=== PATIENT | male | born 1955 | race Caucasian/White ===

== ENCOUNTER → 2017-08-23 10:29 | Outpatient (CLI) | payer BC, SELFPAY ==
--- NOTE | 2017-08-23 10:34 | US_ITS ---
US abdomen limited HISTORY: ITS.REASON: ELEVATED LIVER ENZYMES ORDERING PHYSICIAN: Aleksandr Dailey MD PATIENT AGE: 61 years COMPARISON: None FINDINGS: PANCREAS: Unremarkable. No obvious mass or abnormal fluid collection. No ductal dilatation LIVER: Fatty liver RIGHT KIDNEY: Unremarkable. Normal size and echogenicity. No hydronephrosis GALLBLADDER: There are multiple gallstones present. No gallbladder wall thickening, pericholecystic fluid, or biliary dilatation. IMPRESSION: Cholelithiasis. Fatty liver
--- NOTE | 2017-08-23 11:23 | XR_ITS ---
XR chest 2V HISTORY: Cough and wheezing ITS.REASON: WHEEZING ORDERING PHYSICIAN: Aleksandr Dailey MD PATIENT AGE: 61 years COMPARISON: 10/09/2016 FINDINGS: The cardiomediastinal silhouette and pulmonary vascularity are within normal limits. The lungs are clear without infiltrates, suspicious nodules, or pleural effusions. No acute bony abnormalities. IMPRESSION: Negative chest, no acute finding
--- NOTE | 2017-08-23 11:28 | XR_ITS ---
XR wrist LT min 3V HISTORY: ITS.REASON: LEFT WRIST PAIN ORDERING PHYSICIAN: Aleksandr Dailey MD PATIENT AGE: 61 years COMPARISON: None FINDINGS: No fracture or dislocation. No lytic or blastic change. There is normal mineralization.. The joint spaces are well-preserved. No significant degenerative/arthritic changes. No erosive changes evident.. IMPRESSION: Negative left wrist
== END ==
PROVIDERS: PCP Family Medicine; Visit Provider Family Medicine
DX: R74.8 Abnormal levels of other serum enzymes (principal); R06.2 Wheezing; M25.532 Pain in left wrist
CPT/HCPCS: 71046; 73110; 76705

== ENCOUNTER → 2017-10-10 09:47 | Outpatient (CLI) | payer BC, SELFPAY ==
[2017-10-10 14:55] VITALS: PULSE 71; PULSE 72
== END ==
PROVIDERS: PCP Family Medicine; Visit Provider Internal Medicine
DX: Z01.810 Encounter for preprocedural cardiovascular examination (principal); I25.10 Atherosclerotic heart disease of native coronary artery without angina pectoris
CPT/HCPCS: 94060; 94640; 94726; 94729

== ENCOUNTER → 2017-11-13 12:27 | Outpatient (CLI) | payer BC, SELFPAY ==
[2017-11-14 15:58] LABS: H. pylori Breath Test Negative (Negative)
== END ==
PROVIDERS: Visit Provider Physician Assistant
DX: Z86.19 Personal history of other infectious and parasitic diseases (principal)
CPT/HCPCS: 83013

== ENCOUNTER → 2018-04-01 10:07 | Outpatient (POV) | payer BC, SELFPAY | PROVIDERS: PCP Family Medicine; Visit Provider Internal Medicine | DX: Z00.00 Encounter for general adult medical examination without abnormal findings (principal) ==

== ENCOUNTER → 2018-09-22 10:15 | Outpatient (CLI) | payer BC, SELFPAY ==
--- NOTE | 2018-09-22 10:24 | XR_ITS ---
XR chest 2V, XR ribs RT 2V HISTORY: Chest pain/discomfort after lifting injury ITS.REASON: CHEST DISCOMFORT ORDERING PHYSICIAN: Meg Morrow PATIENT AGE: 62 years Technique: 1. CXR 2 view: PA and lateral chest 2. RIGHT RIBS both oblique views along with frontal view chest below diaphragm COMPARISON: PA and lateral chest 08/23/2017 & 10/09/2016 FINDINGS: ======= CXR The lungs are well expanded and clear with nothing definitely acute. No pneumothorax. No pleural effusion. Heart lexa and mediastinal structures satisfactory. Stable small less than 5 mm partially calcified granuloma right apex unchanged 2016. The slight coarsening markings right infrahilar region towards right lower lobe are similar to previous studies and reflect some minor chronic changes. Nothing definitely acute ======== RIGHT RIBS Right ribs appear intact with no fracture nor lesion evident. Bones well mineralized. Slight undulation at the anterior 10th rib I believe is normal and most compatible with the costochondral junction variations. I doubt fracture. IMPRESSION Right ribs intact. No fracture nor lesion. Lungs clear no active disease. A stable chest
== END ==
PROVIDERS: PCP Family Medicine; Visit Provider Nurse Practitioner Family
DX: R07.89 Other chest pain (principal)
CPT/HCPCS: 71046; 71100

== ENCOUNTER → 2019-01-27 11:10 | Outpatient (CLI) | payer BC, SELFPAY ==
--- NOTE | 2019-01-27 11:10 | NM_ITS ---
CARDIOLITE SPECT MYOCARDIAL PERFUSION LEXISCAN, REST AND STRESS: History: Coronary artery disease, hypertension, hyperlipidemia, family history. Procedure: Patient exercised on Aguilar protocol 10 minutes and 30 seconds, resting heart rate was 54 bpm resting blood pressure 152/81, with exercise maximum heart rate achieved was 1 43 bpm which is greater than 85% of the maximum predicted heart rate and a blood pressure was 190/84. Test was started due to shortness of breath and fatigue patient denied any complained of chest pain. Patient has good exercise capacity achieved 12.3mets of workload on treadmill, the blood pressure response to exercise was adequate. Electrocardiogram: Resting electrocardiogram showed sinus rhythm right bundle branch block, with exercise there is less than 1.[address] segment depression noted from the baseline EKG. The EKG portion of the exercise Myoview is negative for ischemia. Cardiac stress and resting SPECT images: Cardiac stress and resting SPECT images were obtained using technetium 99 Myoview 29.8 mCi stress and 10.1 mCi at rest. Gated SPECT further analysis of segmental wall motion and calculation of the ejection fraction also done. Cardiac stress and resting SPECT images show uniform myocardial activity without segmental perfusion abnormality, computer derived ejection fraction is 50% with no regional wall motion abnormality, right ventricle is normal size and contractility. Conclusion: 1. The EKG portion of the exercise Myoview is negative for ischemia, patient has good exercise capacity achieved 12.3mets of workload on treadmill, the blood pressure response to exercise was adequate, there was no exercise-induced chest discomfort. 2. No scintigraphic evidence of reversible ischemia seen, either derived ejection fraction is 50% with no regional wall motion abnormality, right ventricle is normal size and contractility. 3. Normal exercise Myoview study.
--- NOTE | 2019-01-27 13:09 | HMH.ITSHM ---
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 []SIMVASTATIN REQUIP ACID REFLUX MED ASA HCTZ
== END ==
PROVIDERS: PCP Family Medicine; Visit Provider Physician Assistant
DX: I11.9 Hypertensive heart disease without heart failure (principal); I25.10 Atherosclerotic heart disease of native coronary artery without angina pectoris; I45.10 Unspecified right bundle-branch block; Z95.5 Presence of coronary angioplasty implant and graft
CPT/HCPCS: 78452; 93017; A9502

== ENCOUNTER → 2020-05-13 11:00 | Outpatient (CLI) | payer BC, SELFPAY ==
--- NOTE | 2020-05-13 | CA_ITS ---
APPROVED REPORT Exam: Pharmacologic Technologist: Jenny Inman, Ht: 5 ft 11 in Wt: 210 lbs BSA: 2.15 m2 HR: 64 bpm BP: 124/78 mmHg Rhythm: SINUS RHYTHM WITH RBBB Medical History Medical History: HTN Medications: Omeprazole,,,,, Asa,,,,, HCTZ,,,,, ReQUIP,,,,, Allergies: CODEINE Cardiac Risk Factors: HTN, FHX of CAD Stress Test Details Test: LEXISCAN HR Resting HR: 58 bpm Max Heart Rate (APMHR): 158 bpm Max HR Achieved: 93 bpm Target HR (85% APMHR): 134 bpm % of APMHR: 58 Recovery HR: 76 bpm BP Resting BP: 124.0/78.0 mmHg Max BP: 136.0/79.0 mmHg Recovery BP: 117.0/71.0 mmHg BP response to stress: Normal blood pressure response to stress. ECG Resting ECG: SINUS RHYTHM WITH RBBB Clinical Exercise duration: 04:00 min Highest Stage Achieved: Stress ECG Conclusion LEXISCAN PORTION COMPLETED. PATIENT COMPLAINT OF SOA DURING PEAK INFUSION. NO CHEST PAIN. SOA AT PEAK INFUSION. RESOLVED IN RECOVERY. NO ECTOPY. LESS THAN 1.5MM ST DEPRESSION. IMAGES TO FOLLOW Test Summary REST . . . . . . . Sitting REST 00:37 . . 58 . . . . Stage 1 . . . . . . . Myoview Injected Stage 1 01:00 . . 75 . . . . Stage 2 01:00 . . 91 . 112/ 68 . . Stage 3 01:00 . . 87 . 124/ 71 . . Stage 4 01:00 . . 78 . 132/ 71 . Stop exercise at 04:00 RECOVERY 01:00 . . 79 . 117/ 71 . . RECOVERY 02:00 . . 70 . 119/ 82 . . RECOVERY 03:00 . . 73 . 118/ 82 . . RECOVERY 04:00 . . 69 . 136/ 79 . . RECOVERY 04:03 . . 70 . 136/ 79 . . Electronically signed by : Mark Martin, 05/16/2020 17:56:01
--- NOTE | 2020-05-13 11:00 | NM_ITS ---
APPROVED REPORT Exam: Nuclear Stress Test Indication: CAD, 7 STENTS, HTN, HYPERLIPIDEMIA, FM HX, SOB Patient Location: Outpatient Stress Tech: Linda Henny [place] Tech:Malathi Don JOSE ARMANDO RT (R)(N)(M) Ht: 5 ft 11 in Wt: 205 lbs HR: 64 bpm BP: 124/78 mmHg BSA: 2.13 m2 BMI: 28.5 History: CAD, 7 STENTS, HTN, HYPERLIPIDEMIA, FM HX, SOB Procedure: Patient received a 0.4 mg of intravenous Lexiscan, resting heart rate 64 bpm, resting blood pressure 124/78 mmHg, with Lexiscan maximum heart rate achived was 76 bpm which is Less than 85 % of the maximum predicted heart rate and blood pressure was 117/71 mmHg. With Lexiscan, patient denied any complaint of chest pain. Electrocardiogram Resting electrocardiogram showed sinus rhythm, with Lexiscan there is less than 1.[address] segment depression noted from the baseline EKG. The EKG portion of the Lexiscan is nondiagnostic. Cardiac Stress and Resting SPECT Images: Cardiac Stress and Resting SPECT images were obtained using technetium 99m Myoview 32.3 mCi stress and 10.67 mCi at rest. Gated SPECT for the analysis of segmental wall motion and calculation of the ejection fraction also done. Cardiac stress and resting SPECT images show a mild fixed defect in the inferior wall with normal contractility on gated SPECT is likely secondary to soft tissue attenuation, no reversible ischemia seen. Computer derived ejection fraction is 39% however visually estimated ejection fraction is 55% with no regional wall motion abnormality. Right ventricle is mildly enlarged with normal contractility. Conclusion: 1. The EKG portion of the Lexiscan Myoview is nondiagnostic. 2. No scintigraphic evidence of reversible ischemia, a fixed defect in the inferior wall is likely secondary to soft tissue attenuation, visually estimated ejection fraction 50% with no regional wall motion abnormality, right ventricle is mildly enlarged with normal contractility 3. Likely normal Lexiscan Myoview study. Electronically signed by : Mark Martin, 05/20/2020 13:39:14
--- NOTE | 2020-05-13 13:36 | HMH.ITSHM ---
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 [] ropinirole omeprazole hctz asa
== END ==
PROVIDERS: PCP Family Medicine; Visit Provider Physician Assistant
DX: R07.9 Chest pain, unspecified (principal); I25.10 Atherosclerotic heart disease of native coronary artery without angina pectoris; I11.9 Hypertensive heart disease without heart failure; E78.5 Hyperlipidemia, unspecified; Z95.5 Presence of coronary angioplasty implant and graft
CPT/HCPCS: 78452; 93017; A9502; J2785

== ENCOUNTER → 2020-08-23 09:25 | Outpatient (CLI) | payer BC, SELFPAY ==
[2020-08-23 10:56] LABS: Alanine Aminotransferase 16 U/L (12-78); Aspartate Amino Transferase 30 U/L (17-59); Bilirubin,Unconjugated 1.6 mg/dL (0.0-1.1)
[2020-08-23 10:57] LABS: Albumin Level 4.5 g/dl (3.5-5.0); Alkaline Phosphatase 69 U/L (38-126); Bilirubin,Direct 0.1 mg/dl (0.0-0.4); Bilirubin,Indirect 1.6 mg/dL (0.0-0.9); Bilirubin,Total 1.7 mg/dl (0.2-1.3); Chol/HDL Ratio 2.4 (1-3.5); Cholesterol 160 mg/dl (140-200); HDL Cholesterol 66 mg/dl (40-60); Total Protein,Serum 7.7 g/dl (6.3-8.2); Triglycerides 109 mg/dl (30-150); VLDL Cholesterol 22 mg/dL (0-40)
[2020-08-23 11:20] LABS: Direct LDL Cholesterol 68.47 mg/dL (100-129)
== END ==
PROVIDERS: Visit Provider Urology
DX: E78.5 Hyperlipidemia, unspecified (principal); I25.10 Atherosclerotic heart disease of native coronary artery without angina pectoris; I11.9 Hypertensive heart disease without heart failure; I45.10 Unspecified right bundle-branch block
CPT/HCPCS: 36415; 80061; 80076

== ENCOUNTER → 2020-08-30 11:13 | Outpatient (CLI) | payer BC, SELFPAY ==
--- NOTE | 2020-08-30 11:21 | XR_ITS ---
PROCEDURE: XR CERVICAL SPINE 5V CLINICAL INDICATION: Radiculopathy, cervical COMPARISON: No exams were available for comparison FINDINGS: No fracture or dislocation. No lytic or blastic change. There is normal mineralization. There is degenerative disc disease at C5-C6 and C6-C7 with anterior osteophytes at these levels. Facet arthritic and hypertrophic changes are present at C3, C4, C5, and C6. Uncovertebral hypertrophy and facet hypertrophy results in mild foraminal narrowing at C5-C6 and C6-C7 on the right and C6-C7 on the left. Other findings:Postsurgical changes are present at the mandible with a bone plate as well as the maxilla on both sides with dental implants also noted. No cervical rib. IMPRESSION: Multilevel cervical spondylosis as described above Dictated by: Philip Ruggiero MD 08/30/2020 15:26 Philip Ruggiero MD in [place] 08/30/2020 15:26
== END ==
PROVIDERS: PCP Family Medicine; Visit Provider Family Medicine
DX: M54.12 Radiculopathy, cervical region (principal)
CPT/HCPCS: 72050

== ENCOUNTER → 2020-12-21 09:46 | Outpatient (CLI) | payer BC, SELFPAY ==
--- NOTE | 2020-12-21 09:47 | CA_ITS ---
APPROVED REPORT EXAM: Comprehensive 2D, Doppler, and color-flow Echocardiogram Materials Technician: GLENDA Matthews, RVS Ht: 5 ft 11 in Wt: 224lbs BSA: 2.21 HR: 69 bpm BP: 147/73 mmHg Rhythm: PVC's Indications: CAD-stent, Pre-op clearance for knee replacement,HTN, HLD Echo Enhancing Agent Comments: Frequent ectopic beats. 2D Dimensions IVSd 0.96 cm LVEF (Visual) 57.00 % PWd 0.91 cm LA Volume 77.90 mL LVDd 5.37 cm LA Volume Index 35.20 mL/m2 (M/F) 16-34 LVDs 3.75 cm Aortic Root 3.64 cm Left Atrium 3.70 cm LVOT 1.92 cm (M/F) 1.5-2.5 M-Mode Dimensions LA Diam 4.05 cm (1.9-4.0) Ao Diam 3.61 cm (2.0-3.7) EPSs 0.69 cm TAPSE 3.05 (<1.7) LV Diastology E Decel Time 247.00 (160-240 msec) E/A Ratio 1.36 MED E' 8.10 (< 7 cm/sec) MED A' 10.00 cm/s E'/MED E' Ratio 10.02 (>14) LAT E' 6.30 (<10 cm/sec) LAT A' 11.80 cm/s E/LAT E' Ratio 12.89 (>14) Aortic Valve LVOT Max 75.00 (70-110 cm/s) LVOT VTI 15.40 cm AoV Peak Alberto. 131.00 (50-130 cm/s) AO Peak GR. 6.80 mmHg AO Mean GR. 3.90 (<5 mmHg) AO VTI 30.78 (18-25 cm) NEHA (VTI) 1.45 (2.5-4.5 cm2) Mitral Valve MV A Velocity 60.00 (40-130 cm/s) E/A Ratio 1.36 MV Decel. Time 247.00 (160-240 ms) Pulmonary Valve PV Peak Velocity 73.00 (50-150 cm/s) Tricuspid Valve TR P. Velocity 161.00 cm/s RAP Estimate 10.00 mmHg RVSP 20.40 mmHg Left Ventricle Left atrium is normal size, left ventricle is normal size, there is no concentric left ventricular hypertrophy, visually estimated ejection fraction 55% with no regional wall motion abnormality, diastolic parameters are inconclusive. Right Ventricle Right atrium and right ventricle are normal size and contractility. Aortic Valve Aortic valve is minimally thickened and fibrosed, there is no aortic stenosis or aortic insufficiency. Mitral Valve Mitral valve is grossly normal, there is trace mitral regurgitation. Tricuspid Valve Tricuspid valve grossly normal, there is trace tricuspid regurgitation, tricuspid regurgitation jet velocity is inadequate for calculation of the right ventricular systolic pressure. Pulmonic Valve Pulmonic valve is poorly visualized. Great Vessels Aortic root is normal size. Pericardium No significant pericardial effusion noted. Conclusion 1. Normal left ventricular size, preserved left ventricular systolic function, visually estimated ejection fraction 55% with no regional wall motion abnormality, diastolic parameters are inconclusive. 2. Trace mitral and tricuspid regurgitation. 3. No significant pericardial effusion noted. Electronically signed by : Mark Martin, 12/22/2020 11:21:19
== END ==
PROVIDERS: PCP Family Medicine; Visit Provider Physician Assistant
DX: I25.10 Atherosclerotic heart disease of native coronary artery without angina pectoris (principal); R94.31 Abnormal electrocardiogram [ECG] [EKG]; I11.9 Hypertensive heart disease without heart failure; E78.5 Hyperlipidemia, unspecified; Z95.5 Presence of coronary angioplasty implant and graft
CPT/HCPCS: 93306

== ENCOUNTER → 2021-04-13 16:21 | Outpatient (CLI) | payer BC, SELFPAY ==
[2021-04-13 17:08] LABS: Basophils # 0.1 K/mm3 (0-0.2); Basophils % 0.8 % (0.1-2.0); Eosinophils # 0.2 K/mm3 (0.0-0.4); Eosinophils % 1.7 % (0.1-12.0); Hematocrit 46.8 % (42.0-52.0); Hemoglobin 15.5 g/dL (14.1-18.0); Lymphocytes # 3.2 K/mm3 (0.7-4.5); Lymphocytes % 34.5 % (10-50); Mean Corpuscular HGB Conc 33.1 g/dL (31.8-35.4); Mean Corpuscular Hemoglobin 31.5 pg (27.0-31.2); Mean Platelet Volume 8.6 fl (7.4-10.4); Monocytes # 0.5 K/mm3 (0.1-1.0); Monocytes % 5.8 % (1.7-9.3); Neutrophils # 5.3 K/mm3 (1.8-7.8); Neutrophils % 57.1 % (37.0-80.0); Platelet Count 303 K/mm3 (142-424); Red Blood Count 4.93 M/mm3 (4.60-6.20); Red Cell Distribution Width 13.5 % (11.5-17.5); White Blood Count 9.2 K/mm3 (4.8-10.8)
[2021-04-13 17:31] LABS: Hemoglobin A1C 5.7 % (4.0-6.0)
[2021-04-13 18:37] LABS: Activated Partial Thrombo Time 30.2 seconds (22.8-30.6)
[2021-04-13 18:42] LABS: Chloride 105 mmol/L (98-107); Potassium 3.9 mmoL/L (3.5-5.1); Sodium 140 mmol/L (136-145)
[2021-04-13 18:45] LABS: Alanine Aminotransferase 17 U/L (12-78); Albumin/Globulin Ratio 1.4 (1.1-1.8); Alkaline Phosphatase 80 U/L (38-126); Anion Gap 12.9 mEq/L (5-15); Aspartate Amino Transferase 31 U/L (17-59); Bilirubin,Total 0.6 mg/dl (0.2-1.3); Blood Urea Nitrogen 14 mg/dl (9-20); Calcium 8.9 mg/dl (8.4-10.2); Carbon Dioxide 26 mmol/L (22.0-30.0); Estimated Glomerular Filt Rate 98 ml/min (>60); GFR (African American) 118 ML/MIN (>60); Globulin 2.9 g/dL (1.3-3.2); Glucose 100 mg/dl (74-100); Total Protein,Serum 6.9 g/dl (6.3-8.2)
[2021-04-13 19:04] LABS: 25-OH Vitamin D, Total 33.2 ng/mL (30-100)
[2021-04-13 19:46] LABS: INR 0.93 (0.9-1.1)
[2021-04-29 16:22] LABS: Miscellaneous Test 225
[2021-04-29 16:53] LABS: Cotinine <1.0; Nicotine <1.0
== END ==
PROVIDERS: Visit Provider Family Medicine
DX: Z01.818 Encounter for other preprocedural examination (principal)
CPT/HCPCS: 36415; 80053; 80323; 82306; 83036; 85025; 85610; 85730; 87081

== ENCOUNTER → 2021-09-11 13:22 | Outpatient (CLI) | payer BC, SELFPAY ==
--- NOTE | 2021-09-11 13:30 | XR_ITS ---
FINAL REPORT CLINICAL HISTORY: RT ARM PAIN/ patient fell right sided pain whole right arm FINDINGS: RIGHT SCAPULA Two views demonstrate no acute fracture or dislocation. There are mild degenerative changes of the acromioclavicular joint. Visualized joint spaces are normally aligned. The soft tissues are unremarkable. IMPRESSION: No acute bony abnormality. Reviewed, Interpreted and Dictated by Robbie Vivar III, MD Transcribed by Savanah Mendez Authenticated by Robbie Vivar III, MD on 09/11/2021 03:17:04 PM [facility][1]
--- NOTE | 2021-09-11 13:30 | XR_ITS ---
FINAL REPORT CLINICAL HISTORY: RT ARM PAIN/ patient fell today and has whole right arm pain FINDINGS: RIGHT CLAVICLE Two views demonstrate no acute fracture or dislocation. There are mild degenerative changes of the acromioclavicular joint. Visualized joint spaces are normally aligned. The soft tissues are unremarkable. IMPRESSION: No acute bony abnormality. Reviewed, Interpreted and Dictated by Robbie Vivar III, MD Transcribed by Savanah Mendez Authenticated by Robbie Vivar III, MD on 09/11/2021 03:17:02 PM [facility]
--- NOTE | 2021-09-11 13:30 | XR_ITS ---
FINAL REPORT CLINICAL HISTORY: RT ARM PAIN/ patient fell right sided pain whole right arm FINDINGS: RIGHT ELBOW Four views of the elbow were obtained. There is no acute fracture or dislocation. The joint spaces are intact. Mild degenerative changes are noted. There is not soft tissue abnormality. IMPRESSION: No acute fracture Reviewed, Interpreted and Dictated by Robbie Vivar III, MD Transcribed by Savanah Mendez Authenticated by Robbie Vivar III, MD on 09/11/2021 03:17:08 PM [facility]
--- NOTE | 2021-09-11 13:30 | XR_ITS ---
FINAL REPORT CLINICAL HISTORY: RT ARM PAIN/ patient fell right sided pain whole right arm FINDINGS: RIGHT SHOULDER Three views demonstrate no acute fracture or dislocation. The visualized joint spaces are normally aligned. There are mild degenerative changes of the acromioclavicular joint. The soft tissues are unremarkable. IMPRESSION: No acute bony abnormality. Reviewed, Interpreted and Dictated by Robbie Vivar III, MD Transcribed by Savanah Mendez Authenticated by Robbie Vivar III, MD on 09/11/2021 03:17:07 PM [facility]
--- NOTE | 2021-09-11 13:30 | XR_ITS ---
FINAL REPORT CLINICAL HISTORY: RT ARM PAIN/ patient fell right sided pain whole right arm FINDINGS: RIGHT HUMERUS Two views demonstrate no acute fracture or dislocation. There are mild degenerative changes of the acromioclavicular joint. Visualized joint spaces are normally aligned. The soft tissues are unremarkable. IMPRESSION: No acute bony abnormality. Reviewed, Interpreted and Dictated by Robbie Vivar III, MD Transcribed by Savanah Mendez Authenticated by Robbie Vivar III, MD on 09/11/2021 03:17:05 PM [facility]
== END ==
PROVIDERS: PCP Family Medicine; Visit Provider Nurse Practitioner Family
DX: M79.601 Pain in right arm (principal)
CPT/HCPCS: 73000; 73010; 73030; 73060; 73080

== ENCOUNTER → 2021-09-15 06:28 | Outpatient (CLI) | payer BC, SELFPAY ==
--- NOTE | 2021-09-15 06:39 | CT_ITS ---
FINAL REPORT TECHNIQUE: Axial images of the right shoulder were performed by computed tomography. Sagittal and coronal reformatted images were obtained and reviewed. This study was performed with techniques to keep radiation doses as low as reasonably achievable (ALARA). Individualized dose reduction techniques using automated exposure control or adjustment of mA and/or kV according to the patient's size were employed. CLINICAL HISTORY: RIGHT SHOULDER INJURY, fall 4 days ago, right shoulder pain, limited range of motion FINDINGS: No fracture is identified. There is mild a.c. joint and glenohumeral joint degenerative change. Fluid is seen in the subacromial/subdeltoid bursa. There is a small joint effusion. No soft tissue mass is identified. The musculature is intact. IMPRESSION: No fracture or dislocation. Fluid in the joint and bursa. Indicated, MRI would be more sensitive to evaluate for soft tissue injury. Reviewed, Interpreted and Dictated by Robbie Vivar III, MD Transcribed by Meg Finley Authenticated by Robbie Vivar III, MD on 09/15/2021 08:21:00 AM [facility]
== END ==
PROVIDERS: PCP Family Medicine; Visit Provider Nurse Practitioner Family
DX: S49.91XA Unspecified injury of right shoulder and upper arm, initial encounter (principal)
CPT/HCPCS: 73200

== ENCOUNTER → 2021-09-27 09:25 | Outpatient (CLI) | payer BC, SELFPAY ==
--- NOTE | 2021-09-27 09:29 | MR_ITS ---
FINAL REPORT CLINICAL HISTORY: RT SHOULDER INJURY, FALL 2.5 WEEKS AGO LANDED ON SHOULDER, RIGHT SHOULDER PAIN, LIMITED ROM PRIOR CT SHOULDER 09-15-21 FINDINGS: Multiplanar MR imaging of the right shoulder was performed. There is complete disruption and proximal retraction of the supraspinatus tendon. Tendon is retracted 5 cm. There is superior subluxation of the humeral head. Moderate joint effusion is identified. There is degenerative cyst formation in the superior humeral head. Fluid is seen in the subacromial/subdeltoid bursa. The anterior and posterior glenoid lesia appear intact. The biceps tendon is not clearly seen. The acromioclavicular joint appears intact. IMPRESSION: Complete disruption and proximal retraction of the supraspinatus tendon. Nonvisualization of the biceps tendon, may be disrupted. Fluid in the a.c. joint, may be due to underlying ligamentous instability. Reviewed, Interpreted and Dictated by Celestino Rendon MD Transcribed by Meg Finley Authenticated by Celestino Rendon MD on 09/27/2021 12:21:39 PM [facility]
== END ==
PROVIDERS: PCP Family Medicine; Visit Provider Nurse Practitioner Family
DX: S49.91XA Unspecified injury of right shoulder and upper arm, initial encounter (principal)
CPT/HCPCS: 73221

== ENCOUNTER → 2022-06-08 11:01 | Outpatient (CLI) | payer BC, SELFPAY ==
--- NOTE | 2022-06-08 11:14 | XR_ITS ---
FINAL REPORT CLINICAL HISTORY: foot pain FINDINGS: Left foot Three views were obtained. There are mild degenerative changes. There are postoperative changes in the distal tibia with distal tibia/fibular fractures. No soft tissue abnormality is identified. IMPRESSION: Degenerative and postoperative change as above. Reviewed, Interpreted and Dictated by Robbie Vivar III, MD Transcribed by Meg Finley Authenticated and . [facility]
== END ==
PROVIDERS: PCP Family Medicine; Visit Provider Orthopaedic Surgery
DX: M79.672 Pain in left foot (principal)
CPT/HCPCS: 73630

== ENCOUNTER → 2022-09-07 11:01 | Outpatient (CLI) | payer BC, SELFPAY ==
--- NOTE | 2022-09-07 11:12 | XR_ITS ---
FINAL REPORT CLINICAL HISTORY: fracture COMPARISON: 06/08/2022 FINDINGS: LEFT FOOT Three views of the left foot demonstrate no acute fracture or dislocation. There are chronic fractures of the distal tibia and fibula. There are postoperative changes at the distal tibia and fibula. There are mild degenerative changes. The soft tissues are unremarkable. IMPRESSION: Postoperative and chronic findings with no acute fracture identified. Reviewed, Interpreted and Dictated by Robbie Vivar III, MD Transcribed by Cindy Wall Authenticated and [facility]
== END ==
PROVIDERS: PCP Family Medicine; Visit Provider Orthopaedic Surgery
DX: M19.072 Primary osteoarthritis, left ankle and foot (principal)
CPT/HCPCS: 73630

== ENCOUNTER → 2023-02-25 08:04 | Outpatient (CLI) | payer BC, SELFPAY ==
[2023-02-25 09:29] LABS: Creatinine,Urine Random 141 mg/dL (Not Estab.)
[2023-02-25 09:43] LABS: Alanine Aminotransferase 22 U/L (12-78); Albumin Level 3.9 g/dl (3.5-5.0); Albumin/Globulin Ratio 1.3 (1.1-1.8); Alkaline Phosphatase 64 U/L (38-126); Anion Gap 7.5 mEq/L (5-15); Aspartate Amino Transferase 28 U/L (17-59); Bilirubin,Total 1.1 mg/dl (0.2-1.3); Blood Urea Nitrogen 13 mg/dl (9-20); Carbon Dioxide 33 mmol/L (22.0-30.0); Chloride 104 mmol/L (98-107); Chol/HDL Ratio 2.7 (1-3.5); Cholesterol 149 mg/dl (140-200); Estimated Glomerular Filt Rate 113 ml/min (>60); GFR (African American) 137 ML/MIN (>60); Globulin 2.9 g/dL (1.3-3.2); Glucose 98 mg/dl (74-100); HDL Cholesterol 55 mg/dl (40-60); Potassium 4.5 mmoL/L (3.5-5.1); Sodium 140 mmol/L (136-145); Total Protein,Serum 6.8 g/dl (6.3-8.2); Triglycerides 137 mg/dl (30-150); VLDL Cholesterol 27 mg/dL (0-40)
[2023-02-25 09:53] LABS: Direct LDL Cholesterol 74.47 mg/dL (100-129)
== END ==
PROVIDERS: PCP Family Medicine; Visit Provider Nurse Practitioner Family
DX: E11.9 Type 2 diabetes mellitus without complications (principal); E78.5 Hyperlipidemia, unspecified; I10 Essential (primary) hypertension
CPT/HCPCS: 36415; 80053; 80061; 82043; 82570

== ENCOUNTER 2024-06-04 13:41 | Emergency (ER) | payer MEDICARE, SELFPAY ==
[2024-06-04] VITALS (21 sets, daily range): BP systolic 146–189; BP diastolic 87–151; PULSE 65–92; RESP 14–18; TEMP 36.6–36.9; O2SAT 84–99; BMI 31.4
--- NOTE | 2024-06-04 13:55 | PC.NURSE ---
DR VARGAS AT BEDSIDE
--- NOTE | 2024-06-04 13:59 | XR_ITS ---
PROCEDURE INFORMATION: Exam: XR Left Shoulder Exam date and time: 06/04/2024 2:13 PM Age: 68 years old Clinical indication: Pain and injury or trauma; Fall; Dislocation; Shoulder; Left; Additional info: Dislocation vs FX TECHNIQUE: Imaging protocol: Radiologic exam of the left shoulder. Views: 2 or more views. COMPARISON: No relevant prior studies available. FINDINGS: Bones/joints: Anterior dislocation of the humeral head in relation to the glenoid. Osseous structures of the shoulder are without obvious fracture. No impaction injury clearly appreciated. The acromioclavicular joint is without fracture.. Adjacent ribs are normal. Soft tissues: Normal. IMPRESSION: Anterior dislocation.
[2024-06-04] MEDS: ONDANSETRON 4MG/2ML VIAL 4 MG IV (14:03)
[2024-06-04] MEDS: HYDROMORPHONE 2MG/ML SYRINGE 1 MG IV (14:04)
--- NOTE | 2024-06-04 14:05 | ED_ITS ---
Discharge Plan Disposition Patient Disposition: Home, Self-Care Chief Complaint: PAIN Prescriptions Prescriptions: No Action ropinirole 3 mg tablet 3 mg PO QID tramadol 50 mg tablet 50 mg PO DAILY aspirin [Aspir-81] 81 mg tablet,delayed release (DR/EC) 81 mg PO DAILY Qty: 30 2RF hydrochlorothiazide 25 mg tablet 25 mg PO DAILY omeprazole 20 mg capsule,delayed release(DR/EC) 20 mg PO DAILY Referrals Follow up/Referrals: Aleksandr Dailey MD [Primary Care Provider] - See instructions Fransisco Friedman DO [Staff Physician] - See instructions Activity Restrictions/Add. Instructions Additional Instructions/Restrictions: Call your family doctor to establish care for this visit to the emergency department and schedule follow-up within 48 hours to ensure improvement. If you have any worsening of your condition or any other concerning signs or symptoms, return to the emergency department or your primary care doctor for further evaluation. Follow-up with your heart for further evaluation of your shoulder Clinical Impressions Clinical Impression: Dislocation of left shoulder joint Instructions Patient Instructions: DI for Moderate Sedation, Moderate Sedation Print Language Print Language: Haitian Discharge ED Provider: Abrahan Alexandra General Adult HPI <LEONILA Tong - Last Filed: 06/04/24 14:10> General Chief complaint: PAIN Stated complaint: AO-Pain in L shoulder Time Seen by Provider: 06/04/24 13:54 Related Data Home Medications ?Medication ?Instructions ?Recorded ?Confirmed hydrochlorothiazide 25 mg tablet 25 mg PO DAILY 05/10/20 02/27/24 omeprazole 20 mg capsule,delayed 20 mg PO DAILY 05/10/20 02/27/24 release tramadol 50 mg tablet 50 mg PO DAILY 09/14/22 02/27/24 ropinirole 3 mg tablet 3 mg PO QID 11/28/22 02/27/24 Previous Rx's ?Medication ?Instructions ?Recorded aspirin 81 mg tablet,delayed 81 mg PO DAILY #30 tabs 06/24/18 release (Aspir-) Allergies Allergy/AdvReac Type Severity Reaction Status Date / Time codeine Allergy dizziness, Verified 02/27/24 09:53 sick to stomach <Abrahan Alexandra MD - Last Filed: 06/04/24 15:11> History of Present Illness HPI narrative: Please note that above description of symptoms, in this electronic medical record under categorization of recalled from ER triage doctor by RN are reflective of an initial nursing assessment, however, is not reflective of my full history and physical exam that was personally taken and clarified. Consequentially, this preceding description of symptoms, which may include the patient's categorized chief complaint in the EMR, do not reflect my personal clinical impression, and the ultimate description of history of present illness and patient stated complaints should be deferred to this section of the note. Unless stated otherwise or congruent with this section of the note, additional signs, symptoms, or incongruence should be interpreted as inaccurate with my clinical impression. FOR[facility]LY [facility], [facility] <LEONILA Tong - Last Filed: 06/04/24 14:10> [facility] Disclaimer: The information contained in this section may have been updated after the patient was seen, as this information can be updated by other users. Medical History (Updated 06/04/24 @ 15:11 by Abrahan Alexandra MD) Impacted cerumen, right ear Otalgia, right ear RBBB Diabetes Pre-operative cardiovascular examination HHD (hypertensive heart disease) Obstructive sleep apnea syndrome Hyperlipidemia Right bundle branch block Coronary arteriosclerosis Morbid obesity Surgical History Stented coronary artery Social History Smoking Status: Never smoker alcohol intake: never substance use type: denies use current occupational status: employed Travel in the last 8 weeks: Inside the [place] Other Medical History Have you received the Flu Vaccine for this season: Yes Have you received the Pneumonia Vaccine: No <LEONILA Tong - Last Filed: 06/04/24 14:10> ROS Obtained: Yes Systems reviewed as appropriate & no additional complaints except as documented Physical Exam <LEONILA Tong - Last Filed: 06/04/24 14:10> General General appearance: alert and in no apparent distress Head Head exam: atraumatic and normal inspection Eye Eye exam: Present normal appearance, PERRL and EOMI ENT ENT exam: Present normal exam, normal oropharynx and mucous membranes moist Neck Neck exam: Present normal inspection, full ROM and trachea midline; Absent lymphadenopathy Chest Chest inspection: Present normal inspection and symmetric chest wall rise Respiratory Respiratory exam: Present normal lung sounds bilaterally; Absent accessory muscle use Cardiovascular Cardiovascular exam: Present regular rate, normal rhythm, normal heart sounds, +S1 and +S2 Abdominal Exam Abdominal exam: Present soft and normal bowel sounds; Absent tenderness, guarding or rebound Extremities Exam Extremities exam: Present normal inspection and full ROM Neurological Exam Neurological exam: Present alert, oriented X3 and CN II-XII intact Psychiatric Psychiatric exam: Present normal affect and normal mood Skin Skin exam: Present warm, dry and normal color Lymphatic Lymphatic Findings: no adenopathy <Abrahan Alexandra MD - Last Filed: 06/04/24 15:11> General General appearance: in distress (Mild distress secondary to pain) Extremities Exam Extremities exam: Present other (Per MDM) Medical Decision Making <LEONILA Tong - Last Filed: 06/04/24 14:10> Medical Records Screening: Per USPSTF and CDC recommendations, given the prevalence of disease in our region, it is our hospital?s policy to screen for HIV and viral Hepatitis for all patients aged 18 and over and those with ongoing risk factors. Vital Signs: 06/04/24 13:42 06/04/24 14:45 Temperature 97.9 F Temperature Source Oral Pulse Rate [Radial] 92 H 78 Respiratory Rate 18 18 Blood Pressure [Right Arm] 176/104 H 173/87 H Blood Pressure Mean [Right Arm] 128 115 Blood Pressure Source [Right Arm] Automatic Cuff Blood Pressure Position [Right Arm] Sitting 02 Sat by Pulse Oximetry 96 98 Oxygen Delivery Method Room Air Orders (Tests/Meds): ED MEDICATIONS Discontinued Medications Generic Name Dose Route Start Last Admin Trade Name Maxq PRN Reason Stop Dose Admin Hydromorphone HCl 1 mg 06/04/24 14:02 06/04/24 14:04 Hydromorphone 2mg/Ml Syringe IV 06/04/24 14:03 1 mg ONCE ONE Administration Ketamine HCl 100 mg 06/04/24 14:21 06/04/24 14:47 Ketamine 50mg/1ml Syringe IV 06/04/24 14:22 50 mg ONCE ONE Administration Ondansetron HCl 4 mg 06/04/24 14:02 06/04/24 14:03 Ondansetron 4mg/2ml Vial IV 06/04/24 14:03 4 mg ONCE ONE Administration Propofol 100 mg 06/04/24 14:21 06/04/24 14:50 Propofol 10mg/Ml 20ml Vial IV 06/04/24 14:22 70 mg ONCE ONE Administration ORDERS Category Date Time Status Shoulder XR left minimum 2 views [XR shoulder LT min 2V Exams 06/04/24 13:59 Completed ] Stat XR shoulder LT min 2V Stat Exams 06/04/24 15:01 Taken HIV (1&2) Antibody Rapid Stat Lab 06/04/24 13:54 Received Hep C Ab with Reflex to RNA Stat Lab 06/04/24 13:54 Received Medical Decision Narrative: In summary patient is a [age, sex] who presents to the emergency department for evaluation of [complaint]. Patient is [hemodynamically stable/unstable] upon arrival, [febrile/afebrile]. [Unremarkable physical exam, nonfocal exam versus focal remarkable exam]. Differential diagnosis includes [DDx]. Initial workup will be conducted with [hematologic labs, imaging, respiratory swab, describe workup]. Initial interventions include [crystalloid bolus, medications, p.o. challenge, etc.] initial workup reviewed by me [hematologic labs are remarkable for... Imaging remarkable for... Urinalysis remarkable for]. Upon repeat evaluation [patient had acceptable resolution of symptoms, had persistent pain for which additional interventions were conducted (describe interventions), tolerated p.o., was ambulatory, etc.]. Given this [patient is appropriate for discharge at this time and will be discharged with a prescription for... The case was discussed with hospital medicine regarding management and they will admit the patient their service for continued evaluation at this time... Etc.] Places where you can increase complexity: I informally interpreted the patient's chest x-ray or CT read and is remarkable for... Documenting what the tree deadener shows with rate and rhythm Consideration of test but deferring. Ex: I considered chest x-ray on this patient however given that they have no oxygen requirement and are clear to au scultation all lung boone will be deferred. Social determinants of health: Given that patient is undomiciled increases complexity. Given that patient has polysubstance abuse compounds all aspects of care <Abrahan Alexandra MD - Last Filed: 06/04/24 15:11> Medical Records Medical records reviewed: Yes I reviewed the patient's medical records. Ike Inquiry Pt receiving controlled substance: No Ike was queried for this patient: No Vital Signs: 06/04/24 13:42 06/04/24 14:45 Temperature 97.9 F Temperature Source Oral Pulse Rate [Radial] 92 H 78 Respiratory Rate 18 18 Blood Pressure [Right Arm] 176/104 H 173/87 H Blood Pressure Mean [Right Arm] 128 115 Blood Pressure Source [Right Arm] Automatic Cuff Blood Pressure Position [Right Arm] Sitting 02 Sat by Pulse Oximetry 96 98 Oxygen Delivery Method Room Air Orders (Tests/Meds): ED MEDICATIONS Discontinued Medications Generic Name Dose Route Start Last Admin Trade Name Freq PRN Reason Stop Dose Admin Hydromorphone HCl 1 mg 06/04/24 14:02 06/04/24 14:04 Hydromorphone 2mg/Ml Syringe IV 06/04/24 14:03 1 mg ONCE ONE Administration Ketamine HCl 100 mg 06/04/24 14:21 06/04/24 14:47 Ketamine 50mg/1ml Syringe IV 06/04/24 14:22 50 mg ONCE ONE Administration Ondansetron HCl 4 mg 06/04/24 14:02 06/04/24 14:03 Ondansetron 4mg/2ml Vial IV 06/04/24 14:03 4 mg ONCE ONE Administration Propofol 100 mg 06/04/24 14:21 06/04/24 14:50 Propofol 10mg/Ml 20ml Vial IV 06/04/24 14:22 70 mg ONCE ONE Administration ORDERS Category Date Time Status Shoulder XR left minimum 2 views [XR shoulder LT min 2V Exams 06/04/24 13:59 Completed ] Stat XR shoulder LT min 2V Stat Exams 06/04/24 15:01 Taken HIV (1&2) Antibody Rapid Stat Lab 06/04/24 13:54 Received Hep C Ab with Reflex to RNA Stat Lab 06/04/24 13:54 Received Medical Decision Narrative: 68-year-old male history of hypertension, hyperlipidemia, diabetes, CAD status post stenting, not on anticoagulation presenting with left shoulder injury. Patient states that he was up about 6 feet on a ladder, fell and caught his left shoulder on a 2 x 4. Active shoulder in place. He did not hit the ground, he dangled from his left upper extremity and his toes were able to touch the ground, he was able to free himself, came to the emergency department for further evaluation given concern for fracture versus dislocation. Did not take anything for pain prior to valuation. History was obtained via conversation with patient. On arrival, patient hemodynamically stable, alert, oriented x4, appropriate, GCS 15, moving all extremities spontaneously, pupils equal and reactive to light. Full physical exam performed and significant for obviously dislocated left upper extremity. No evidence of deformity otherwise or bony abnormality. Pulses equal in upper extremities. Sensation intact. Motor intact at elbow, wrist, digits. Differential includes dislocation, fracture/dislocation, neurovascular injury, among others. Patient placed on continuous cardiac monitoring and continuous pulse ox with initial blood pressure 176/100, heart rate 92, saturation 96% on room air. Patient given a milligram of Dilaudid IV as well as Zofran. X-rays were ordered, independent interpretation demonstrates anterior/superior dislocation of the glenohumeral joint. See radiology read for further interpretation. No evidence of fracture. Consented. Patient given propofol and ketamine, 70 mg and 50 mg respectively. Reduced successfully after 3 times. Neurovascular intact on repeat neurovascular evaluation. Repeat x-rays were independently interpreted and joint is back in place, no evidence of bony abnormality. Because patient at baseline without signs or symptoms of clinical decompensation, deemed appropriate for discharge. Results were relayed to patient who voiced understanding and were agreeable to outpatient management and follow up. I discussed my clinical impression with patient and answered all questions. At this time, the evidence for any other entities in the differential is insufficient to warrant any further testing or ED observation. This was explained as well. Advisory was given that persistent or worsening symptoms require further evaluation. I confirmed the understanding of this discussion. Wood Heel Cementer disclaimer Much of this encounter note is an electronic glycerin operator spoken language to printed text. Electronic glycerin operator of the spoken language may permit errors. Although I have reviewed the note, some errors may still exist. Procedures <Abrahan Alexandra MD - Last Filed: 06/04/24 15:11> Orthopedic Joint Reduction Joint #1: Time Out Performed: Yes Side: left Joint Reduction Location: shoulder Analgesia: procedural sedation Shoulder Technique Used (if applicable): traction/counter-traction Post-reduction neuro exam: intact and no change Post-reduction vascular: intact and no change Post Reduction X-Ray Obtained: Yes Post Reduction X-Ray Results: reduced Splint Applied: Yes Patient Tolerated Procedure: well and no complications Procedural Sedation A heart and lung assessment was performed on this patient at: 14:30 Mallampati Score:: Class III Indication: fracture/dislocation reduction ASA Class: III Preparation: tree deadener applied, pulse oximeter, capnometry used and supplemental O2 applied Ketamine: IV Ketamine dose (mg): 50 IV Propofol dose (mg): 100 Critical Care <Abrahan Alexandra MD - Last Filed: 06/04/24 15:11> Critical Care Time Critical Care Time: No
--- NOTE | 2024-06-04 14:21 | PC.NURSE ---
XR AT BEDSIDE
[2024-06-04] MEDS: KETAMINE 50MG/1ML SYRINGE 100 MG IV (14:47)
[2024-06-04] MEDS: PROPOFOL 10MG/ML 20ML VIAL 100 MG IV (14:50)
--- NOTE | 2024-06-04 15:01 | XR_ITS ---
PROCEDURE INFORMATION: Exam: XR Left Shoulder Exam date and time: 06/04/2024 2:56 PM Age: 68 years old Clinical indication: Pain; Shoulder; Left; Additional info: Post reduction TECHNIQUE: Imaging protocol: Radiologic exam of the left shoulder. Views: 2 or more views. COMPARISON: CR XR SHOULDER LT MIN 2V 06/04/2024 2:13 PM FINDINGS: Bones/joints: Reduction of the previously visualized anterior dislocation. Loss of the subacromial space height consistent with rotator cuff pathology. Soft tissues: Normal. IMPRESSION: 1. Reduction of the previously visualized anterior dislocation. 2. Loss of the subacromial space height consistent with rotator cuff pathology.
--- NOTE | 2024-06-04 15:01 | PC.NURSE ---
XR AT BEDSIDE
[2024-06-04] MEDS: KETOROLAC 30MG/ML VIAL 30 MG IV (15:44)
[2024-06-04] MEDS: OXYCODONE 5MG IMMEDIATE RELEASE TABLET 5 MG PO (15:44)
[2024-06-04 16:30] LABS: HIV (1&2) Antibody Rapid NONREACTIVE (NONREACTIVE)
[2024-06-05 09:15] LABS: HCV Ab Non Reactive (Non Reactive)
== END 2024-06-04 16:11 | disposition home or self-care (01) ==
PROVIDERS: Emergency Provider Emergency Medicine; PCP Family Medicine
DX: S43.005A Unspecified dislocation of left shoulder joint, initial encounter (principal); M25.512 Pain in left shoulder
CPT/HCPCS: 23655; 73030; 86803; 87389; 96374; 96375; 99152; 99283; J1171; J1885; J2405

== ENCOUNTER 2025-04-02 09:53 | Outpatient (CLI) | payer MEDICARE, SELFPAY ==
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
--- OUTSIDE RECORDS SUMMARY | 2025-01-12 05:45 | XMS_ITS ---
[facility] Address [address] [facility] [address] [place] [id number] Care Team Providers Care Senior Windows Systems Administrator Name Role Phone Marylou Dailey Primary Care Provider Allergies Allergen (clinical drug ingredient) Drug/Non Drug Allergy documented on EMR Reaction Allergy Type Onset Date Status codeine Codeine Pt. says makes him a little dizzy Drug Allergy Active REASON FOR VISIT med check, Needs labs Medications Medication SIG (Take, Route, Frequency, Duration) Notes Start Date End Date Status Ciprofloxacin-dexAMETHasone 0.3-0.1 % 4 drops into affected ear Otic Twice a day; Duration: 7 day(s) 02/24/2024 Not-Taking hydroCHLOROthiazide 25 MG 1 tab(s) orall y once a day; Duration: 30 days Active Omeprazole 20 MG 1 capsule 1/2 to 1 hour before morning meal Orally Once a day; Duration: 30 days Active rOPINIRole HCl 3 MG 1 tab(s) orally 6 times daily; Duration: 30 days Active Cyclobenzaprine HCl 10 MG 1 tablet at be dtime as needed Orally 3 times a day 01/12/2025 Active traMADol HCl 50 MG 1-2 tab(s) orally four times a day as needed 01/12/2025 Active Promethazine-DM 6.25-15 MG/5ML 10 ml Orally every 6 hrs prn 05/28/2024 Not-Taking Amoxicillin 875 MG 1 tablet Orally Twice a day 05/26/2024 Not-Taking Aspirin Adult Low Dose 81 MG 1 tab(s) or ally once a day; Duration: 30 day(s) Active Problems Problem Type SNOMED Code ICD Code Onset Dates Problem Status W/U Status Risk Notes Problem Cervicalgia (M54.2) Active confirmed Due to muscle spasm Vital Signs Blood pressure systolic 130 mm Hg 01/13/20 25 Blood pressure diastolic 82 mm Hg 025 Heart Rate 47 /min 01/12/2025 Height 69.75 in 01/12/2025 Weight 236.8 lbs 01/12/2025 BMI 34.22 kg/m2 01/12/2025 Encounters Encounter Location Date Provider Diagnosis [facility] [address] [place], [place] [phone] 01/12/2025 Marylou Dailey OA (osteoarthritis) M19.90 ; Chronic pain syndrome G89.4 ; HTN (hypertension) I10 ; Hyperlipidemia E78.5 ; History of ASCVD Z86.79 ; GERD (gastroesophageal reflux disease) K21.9 and Cervicalgia M54.2 Assessments Encounter Date Diagnosis (ICD Code) Assessment Notes Treatment Notes Treatment Clinical Notes Section Notes 01/12/2025 OA (osteoarthritis) (ICD-10 - M19.90) 01/12/2025 Chronic pain syndrome (ICD-10 - G89.4) 01/12/2025 HTN (hypertension) (ICD-10 - I10) 01/12/2025 Hyperlipidemia (ICD-10 - E78.5) 01/12/2025 History of ASCVD (ICD-10 - Z86.79) 01/12/2025 GERD (gastroesophageal reflux disease) (ICD-10 - K21.9) 01/12/2025 Cervicalgia (ICD-10 - M54.2) Due to muscle spasm Plan Of Treatment Medication Medication Name Sig Start Date Stop Date Notes Cyclobenzaprine HCl 10 MG 1 tablet at be dtime as needed Orally 3 times a day 01/12/2025 traMADol HCl 50 MG 1-2 tab(s) orally fo ur times a day as needed 01/12/2025 Next Appt Details Follow Up: 6 Months, Reason: Progress Notes * OLESYA RAEGANISDOB:1955 (69 yo M)Acc No.[id number]:01/12/2025 Progress Notes Patient: CYNTHIA STEIN Provider: Marylou Dailey M.D. :1955 A ge:69 Y S ex:Male Date:01/12/2025 Address:[address] [place] [address] [address] , [place], [id number] Subjective: * Chief Complaints: * 1 . Med check. 2. Needs labs. * HPI: H PI: He returns for scheduled checkup. He is needing refills on tramadol. S houlder/Upper arm: He is complaining of ongoing shoulder pain and is planning to seek orthopedic consultation. N go: He has recently been doing some overhead work at home and has had left-sided neck pain and spasm unrelieved with conservative measures at home. * ROS: A LLERGY: no C ough. [...] 04/2021. * Hospitalization/Major Diagno stic Procedure: [facility] - - 21 day stay , right knee replacement 2011, [facility]-sinus infection 10/08/16, [facility]- [address] Wyman [...] tab(s) orally 6 times daily , Taking Omeprazole 20 MG Capsule Delayed Release 1 capsule 1/2 to 1 hour before morning meal Orally Once a day , Taking hydroCHLOROthiazide 25 MG Tablet 1 tab(s) orally once a day , Not-Taking Amoxicillin 875 MG Tablet 1 tablet Orally Twice a day , Not-Taking Promethazine-DM 6.25-15 MG/5ML Syrup 10 ml Orally every 6 hrs prn , Not-Taking Ciprofloxacin-dexAMETHasone 0.3-0.1 % Suspension 4 drops into affected ear Otic Twice a day , Medication List reviewed and reconciled with the patient * Allergies: C odeine: Pt. says makes him a little dizzy. Objective: * Vitals: W t: 236.8, Temp: 98.2, BP: 130/82, HR: 47, O2 Sat: 96% on RA, Nurse: [facility], Ht: 69.75, BMI:34.22. * Examination: G eneral Examination: General Appearance: N AD. H EENT: sclera and conjunctiva clear, PERRLA, TM's normal, translucent. O ral cavity: n o lesions, mucosa moist and WNL, no erythema. N go: H ealed surgical scar. No bony tenderness of the C-spine. There is tenderness to palpation of the left upper trapezius. Range of motion decreased due to pain and stiffness.. H eart: R SR. L ungs: c lear to auscultation. A bdomen: soft, nontender, bowel sounds present. N eurologic Exam: no focal deficits. S kin: n ormal, no rash. E xtremities: n o leg edema. Assessment: * Assessment: 1. O A (osteoarthritis) - M19.90 (Primary) 2 . C hronic pain syndrome - G89.4 3 . H TN (hypertension) - I10 4 . H yperlipidemia - E78.5? 5. H istory of ASCVD - Z86.79 6 . G ERD (gastroesophageal reflux disease) - K21.9 7 . C ervicalgia - M54.2 N otes :Due to muscle spasm Plan: * Treatment: 2. C ervicalgia Start Cyclobenzaprine HCl Tablet, 10 MG, 1 tablet at bedtime as needed, Orally, 3 times a day, 30.? * Procedure Codes: G 2211 Complex e/m visit add on, 1036F TOBACCO NON-USER, G8950 PREHTN/HTN BP DOC INDCD F/U DOC, G8752 MOST RECENT SYSTOLIC BP < 140MM HG, G8754 MOST RECENT DIASTOLIC BP < 90MM HG, 3017F COLORECTAL CA SCREEN DOC REV * Preventive Medicine: Screening / Special Tests: C olonoscopy C ologuard:06/18/2024, negative. * Follow Up: 6 Months * Images: Billing Information: * Visit Code: 35935 Office Visit, Est Pt., Level 3. * Procedure Codes: G2211 Complex e/m visit add on. 1036F TOBACCO NON-USER. G8950 PREHTN/HTN BP DOC INDCD F/U DOC. G8752 MOST RECENT SYSTOLIC BP < 140MM HG. G8754 MOST RECENT DIASTOLIC BP < 90MM HG. 3017F COLORECTAL CA SCREEN DOC REV. * Electronic signature of Marylou Dailey MD on 04/02/2025 at 09:55 AM EDT Sign off status: Pending * Provider: Marylou Dailey M.D. Date: 0 01/12/2025 Generated for Taye quezada/Pricilla/eTransmitting on: 0 04/02/2025 09:55 AM EDT History and Physical Notes * HPI (History of Present Illness) Category Sub-Category Detail Notes Category Not es Neck He has recently been doing some overhead work at home and has had left-sided neck pain and spasm unrelieved with conservative measures at home. Shoulder/Upper arm He is com plaining of ongoing shoulder pain and is planning to seek orthopedic consultation. HPI He returns for scheduled checkup. He is needing refills on tramadol. Examination Category Sub-Category Detail Notes Category Not es General Examination HEENT: sclera and c onjunctiva clear, PERRLA, TM's normal, translucent Heart: RSR Lungs: clear to auscultatio n Abdomen: soft, nontender, bow el sounds present Extremities: no leg edema General Appearance: NAD Skin: normal, no rash Neurologic Exam: no focal deficits Neck: Healed surgical scar . No bony tenderness of the C-spine. There is tenderness to palpation of the left upper trapezius. Range of motion decreased due to pain and stiffness. Oral cavity: no lesions, mucosa m oist and WNL, no erythema
--- OUTSIDE RECORDS SUMMARY | 2025-04-02 09:55 | XMS_ITS | Clinical Summary ---
Author Organization [facility] Address [address] [place] [id number] Phone [email or web address] Care Team Providers Care Filter Bed Placer Name Role Phone Aleksandr Dailey MD Primary Care Provider Allergies Active Allergy Reactions Criticality Noted Date Comments Codeine 06/30/2018 nausea Medications omeprazole (PriLOSEC) [address] capsule 06/05/2018 Active rOPINIRole (REQUIP) 2 MG tablet 06/19/2018 Active aspirin (ST TYLER) 81 MG EC tablet Take 81 mg by mouth daily. Active hydroCHLOROthiaz monica (HYDRODIURIL) 25 MG tablet Take 25 mg by mouth 1 (one) time each day. Active simvastatin (ZOCOR) 20 MG tablet Take 20 mg by mouth 1 (one) time each day. 03/09/2021 Active EQ Pain Reliever 500 MG tablet 04/17/2021 Activ e Active Problems Problem Noted Date Diagnosed Date Return to work evaluation 09/22/2021 Examination for medicolegal reason 04/12/2011 Overview (01/01/2018): Routine general medical exam ination at a health care facility 01/12/2010 Overview (01/01/2018): Pain in joint involving other specified sites Overview (01/01/2018): Other examination of ears and hearing 11/19/2007 Overview (01/01/2018): Presbyopia 10/15/2007 Overview (01/01/2018): Immunizations Immunization Administration Dates Next Due Covid-19 (Froy J&J) (CVX-212) 10/14/2020 Tdap (ADACEL BOOSTRIX) (CVX-115) 11/09/2011,12/04 Social History Tobacco Use Types Packs/Day Years Used Date Smoking Tobacco: Never Smokeless Tobacco: Never Intimate Partner Violence Answer Date R ecorded Insults You Not on file 11/15/2020 Threatens You Not on file 11/15/2020 Screams at You Not on file 11/15/2020 Physically Hurt Not on file 11/15/2020 Intimate Partner Violence Score Not on file 11/15/2020 Depression Answer Date Recorded PHQ Total Score Not on file 09/23/2022 Stress Answer Date Recorded Stress in your Life 0 09/16/2020 Dealing with Stress Not on file 09/16/2020 Sex and Gender Information Value Date Recorded Sex Assigned at Not on file Legal Sex Male 8:17 AM CDT Gender Identity Not on file Sexual Orientation Not on file Last Filed Vital Signs Vital Sign Reading Time Taken Comments Blood Pressure 138/78 09/22/2021 9:42 AM EST Pulse 74 09/22/2021 9:42 AM EST Temperature 35.9 C (96.6 F) 09/22/2021 9:21 AM EST Respiratory Rate 18 09/22/2021 9:21 AM EST Oxygen Saturation 96% 09/22/2021 9:42 AM EST Inhaled Oxygen Concentration - - Weight 102 kg (224 lb) 11/20/2018 9:24 PM EDT Height 180.3 cm (5' 11 ) 11/20/2018 9:24 PM EDT Body Mass Index 31.24 11/20/2018 9:24 PM EDT Plan of Treatment Health Maintenance Due Date Last Done Comments CT Colonography 1957 Colonoscopy 1957 Colorectal Cancer Screening Combo 1955 DNA Cologuard 1957 Dental Cleaning/Exam 1957 FIT or FOBT Test 1957 Sigmoidoscopy 1957 Pneumococcal: 65+ Years (1 o f 1 - PCV) 12/30/2007 Zoster Immunization (1 of 2) 12/30/2007 Tetanus Diphtheria and Pertussis Immunization (2 - Td or Tdap) 11/08/2021 11/09/2011, 1957 Covid-19 Immunization (2 - 2023- season) 2024 10/14/2020 Influenza Immunization (#1) 2025 HIB Immunization Aged Out No longer e ligible based on patient's age to complete this topic HPV Immunization Aged Out No longer e ligible based on patient's age to complete this topic Hepatitis A Immunization Aged Out No longer eligible based on patient's age to complete this topic Hepatitis B Immunization Aged Out No longer eligible based on patient's age to complete this topic Polio Immunization Aged Out No longer eligible based on patient's age to complete this topic Insurance [place] [id number] [employer] [place] [address] [place] [address] Care Teams Filter Bed Placer Relationship Specialty Start Date End Date Aleksandr Dailey MD [address] [facility] [place] [id number] PCP - General Family Medicine 11/21/20
--- OUTSIDE RECORDS SUMMARY | 2025-04-02 09:55 | XMS_ITS | Clinical Summary ---
Author Organization [facility] Address [address] [place], [place] [address] Care Team Providers Care Training And Development Officer Name Role Phone Oscar Bello MD Primary Care Provider [phone] Family History Medical History Relation Name Comments Heart Problem Father Other cancer Mother Heart attack Sister Relation Name Status Comments Father Mother Sister Social History Tobacco Use Types Packs/Day Years Used Date Smoking Tobacco: Never Alcohol Use Standard Drinks/Week Comments No 0 (1 standard drink = 0.6 oz pure alcohol) Alcoholic Drinks/day: Denies alcohol consumption Sex and Gender Information Value Date Recorded Sex Assigned at Not on file Legal Sex Male 7:26 PM EDT Gender Identity Not on file Sexual Orientation Not on file Last Filed Vital Signs Vital Sign Reading Time Taken Comments Blood Pressure 148/82 04/01/2018 10:26 AM EDT Pulse 84 04/01/2018 10:26 AM EDT Temperature 37.2 C (98.9 F) 04/01/2018 10:26 AM EDT Respiratory Rate 16 04/01/2018 10:26 AM EDT Oxygen Saturation - - Inhaled Oxygen Concentration - - Weight 139 kg (306 lb 2.1 oz) 04/01/2018 10:26 A M EDT Height 180.3 cm (5' 11 ) 04/01/2018 10:26 AM EDT Body Mass Index 42.7 04/01/2018 10:26 AM EDT Plan of Treatment Health Maintenance Due Date Last Done Comments [facility]-Depression Screening 1957 [facility]-/Child/Adol SDOH Screenings 1957 [facility]- SDOH Screenings 12/30/1975 [facility]-Adult SDOH Screenings 12/30/1975 [facility]-DTaP,Tdap,and Td Vaccine s (1 - Tdap) 1976 CT Colonography 2002 Colonoscopy 2002 FIT-DNA 2002 FIT 2002 FOBT 2002 Sigmoidoscopy 2002 [facility]-Colorectal Cancer Screening 2002 [facility]-Pneumococcal Vaccine: 50 + Years (1 of 1 - PCV) 12/30/2007 [facility]-Zoster Vaccines (1 of 2) 12/30/2007 [id number] Vaccine (1 - 20 24-25 season) 2024 [facility]-Influenza Vaccine (#1) 2025 [facility]-RSV Vaccine: 60+ Years o r (1 - 1-dose 75+ series) 2032 HPV Vaccines Aged Out No longer eligi ble based on patient's age to complete this topic [facility]-HIB Vaccines Aged Out No longer e ligible based on patient's age to complete this topic [facility]-Hepatitis A Vaccines Aged Out No longer eligible based on patient's age to complete this topic [facility]-IPV Vaccines Aged Out No longer e ligible based on patient's age to complete this topic [facility]-Rotavirus Vaccines Aged Out No lo nger eligible based on patient's age to complete this topic Care Teams Training And Development Officer Relationship Specialty Start Date End Date Oscar Bello MD [address] [place] [id number] PCP - General 12/16/20
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
--- OUTSIDE RECORDS SUMMARY | 2025-04-02 09:56 | XMS_ITS | Clinical Summary ---
[facility] Organization [facility] Address [address] [place] [address] Care Team Providers Care Blocker And Polisher Name Role Phone Aleksandr Dailey MD Primary Care Provider Allergies Active Allergy Reactions Criticality Noted Date Comments Codeine Nausea Only,Dizziness Low 07/10/2017 Tolerates other narcotics, morphine, percocet, lortab Medications rOPINIRole (REQUIP) 2 MG tablet Take 2 mg by mouth 4 (Four) Times a Day As Needed (Restless legs syndrome). Active omeprazole (priLOSEC) 20 MG capsule Take 2 capsules by mouth Daily. 60 capsule 06/05/2018 2:59 PM EDT 8 Active Additional Information Patient taking differently: 20 mgOral Daily, Reported on 01/23/2022 aspirin 81 MG EC tablet Take 81 mg by mouth Daily. Active hydrochlorothiaz monica (HYDRODIURIL) 25 MG tablet Take 25 mg by mouth Daily. Active simvastatin (ZOCOR) 20 MG tablet Take 20 mg by mouth Daily. 2 Active ondansetron (Zofran) 4 MG tablet Take 1 tablet by mouth Every 8 (Eight) Hours As Needed for Nausea or Vomiting. 12 tablet 01/23/2022 11:25 AM EDT 2 Active docusate sodium (COLACE) 100 MG capsule Take 1 capsule by mouth 2 (Two) Times a Day. 20 capsule 01/23/2022 11:25 AM EDT 2 Active HYDROcodone-acet aminophen (NORCO) 7.5-325 MG per tabletIndication s:Right rotator cuff tear arthropathy Take 1-2 tablets by mouth Every 4 (Four) Hours As Needed for Moderate Pain (Pain). 24 tablet 01/23/2022 11:25 AM EDT 2 Active benzoyl peroxide 5 % external liquid Apply topically to the appropriate area three times prior to surgery as directed 148 g 5 Active Active Problems Problem Noted Date Diagnosed Date Symptomatic cholelithiasis 08/15/2018 Overview (08/15/2018): Added automatically from request for surgery [id number] Dysphagia 07/08/2018 Overview (07/08/2018): Added automatically from request for surgery [id number] Obesity, Class III, BMI 40-49.9 (morbid obesity) 05/30/2018 Overview (05/30/2018): Added automatically from request for surgery [id number] DVT (deep venous thrombosis) 08/05/1997 Overview (07/24/2017): s/p long hospitalization Dyspepsia Fatigue Morbid obesity with BMI of 45.0-49.9, adult Hypertension Hyperlipidemia Coronary artery disease RLS (restless legs syndrome) [place] (obstructive sleep apnea) Prediabetes GERD (gastroesophageal reflux disease) Cardiovascular disease Overview (07/24/2017): Sees Dr. Hernández warp scouring vat tender in [place]. Cath with stents placed x 6 11/2016. 1 stent in 2009. On ASA and effient. Diabetes mellitus Immunizations Immunization Administration Dates Next Due COVID-19 (Zealify) 10/14/2020 Family History Medical History Relation Name Comments Hypertension Father Stroke Father Stomach cancer Mother Heart attack Sister Obesity Sister Relation Name Status Comments Father Mother Sister Social History Tobacco Use Types Packs/Day Years Used Date Smoking Tobacco: Never Smokeless Tobacco: Never Comments:not around smoker o ften, occ at work Alcohol Use Standard Drinks/Week Comments No 0 (1 standard drink = 0.6 oz pur e alcohol) Abuse Screen Answer Date Recorded Unsafe at Home or Work/School Not on file Feels Threatened by Someone? Not on file 04/2023 Does Anyone Keep You from Co ntacting Others or Doint Things Outside the Home? Not on file 05/13/2023 Physical Sign of Abuse Present Not on file 1 Housing Stability Answer Date Recorded Current Living Arrangements Not on file 04/2023 Potentially Unsafe Housing Conditions Not on raciel e 05/13/2023 Family and Community Support Answer Bryn e Recorded Help with Day-to-Day Activities Not on file 05/13/2023 Lonely or Isolated Not on file 05/13/2023 Employment Answer Date Recorded Do you want help finding or keeping work or a christine b? Not on file 05/13/2023 Disabilities Answer Date Recorded Concentrating, Remembering, or Making Decisions Difficulty Not on file 05/13/2023 Doing Errands Independently Difficulty Not on fi le 05/13/2023 Education Answer Date Recorded Help with school or training? 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 Not on file Not on file Last Filed Vital Signs Vital Sign Reading Time Taken Comments Blood Pressure 125/64 01/23/2022 12:00 PM EDT Pulse 56 01/23/2022 12:30 PM EDT Temperature 36.6 C (97.8 F) 01/23/2022 11:50 AM EDT Respiratory Rate 18 01/23/2022 11:50 AM EDT Oxygen Saturation 91% 01/23/2022 12:30 PM EDT Inhaled Oxygen Concentration - - Weight 109 kg (239 lb 12 oz) 01/23/2022 6:26 AM EDT Height 180.3 cm (5' 11 ) 01/23/2022 6:26 AM EDT Body Mass Index 33.44 01/23/2022 6:26 AM EDT Plan of Treatment Upcoming Encounters Date Type Department Care Team (Latest Contact Info) Description 04/07/2025 12:30 PM EDT Pre-Admission Testing [facility] PREADMISSION T [address] [place] [address] 04/20/2025 7:15 AM EDT Hospital Encounter [facility] [place] [address] [place] [id number] Benjamin Leija Jr., MD [address] [place] [address] 04/20/2025 7:15 AM EDT - 04/20/2025 9:17 AM EDT Surgery [facility] OR [address] [place] [id number] Benjamin Leija Jr., MD [address] [place] [address] TOTAL SHOULDER REVERSE ARTHROPLASTY WITH BICEPS TENODESIS- LEFT [28384 (CPT )] Scheduled Procedures Name Priority Associated Diagnoses Date/Ti me TOTAL SHOULDER REVERSE ARTHROPLASTY 04/20/2025 7:15 AM E DT Health Maintenance Due Date Last Done Comments DIABETIC FOOT EXAM 12/30/1967 URINE MICROALBUMIN-CREATININ E RATIO (uACR) 12/30/1967 COLOGUARD 2002 COLON CANCER SCREENING 5 YEA R SIGMOIDOSCOPY 2002 COLONOSCOPY 2002 [address] CANCER SCREENING 2002 CT COLONOGRAPHY 2002 FECAL OCCULT BLOOD TEST 2002 FIT Testing (1 year) 2002 ANNUAL WELLNESS VISIT 07/10/2017 HEPATITIS C SCREENING 07/10/2017 LIPID PANEL 07/24/2018 07/24/2017 DIABETIC EYE EXAM 10/08/2019 10/07/2018 HEMOGLOBIN A1C 05/30/2022 11/28/2021, 05/06, 07/24/2017 Pneumococcal Vaccine 50+ (2 of 2 - PCV) 10/31/2022 10/31/2021 AAA SCREEN ONCE 2022 COVID-19 Vaccine (2 - season) 04/05/202407/2021 INFLUENZA VACCINE 05/05/2025 05/08/2018 TDAP/TD VACCINES (3 - Td or Tdap) 10/20/2029 10/21/2019, 11/09/2011, 1957 ZOSTER VACCINE Completed 10/31/2021, 04/04/2021 Goals Goal Patient Goal Type Associated Problems Recent Progress Patient-Stated? Author Autogenera louis Goal Care Plan Autogenerated Problem No Sy Clark RegSched Rep Medical Devices Implanted Type Area Microfabrication Engineer Manager Device Identifier Shelf Expiration Date Model / Serial / Lot Sealant Fibrin Tisseel Fz 4ml - [id number] Implanted: Qty: 1 on 06/03/2018 by Gloria Hardy MD at [facility] Implant N/A: Stomach [facility] 02/02/2020 [id number] / / [id number] Totl Rev Shldr Djo - [id number] Implanted: Qty: 1 on 01/23/2022 by Benjamin Leija Jr., MD at [facility] Implant Right: Shoulder [employer] CHRISTINE / / Scrw Bone Rsp Lk 5x22mm - [id number] Implanted: Qty: 1 on 01/23/2022 by Benjamin Leija Jr., MD at [facility] Implant Right: Shoulder [employer] 12/05/2027 [id number] / / [id number] Scrw Bone Rsp Lk 5x14mm - [id number] Implanted: Qty: 2 on 01/23/2022 by Benjamin Leija Jr., MD at [facility] Implant Right: Shoulder [employer] 12/01/2027 [id number] / / [id number] Stem Hum/Shldr Altivate Rev Std Sz8 48mm - [id number] Implanted: Qty: 1 on 01/23/2022 by Benjamin Leija Jr., MD at [facility] Implant Right: Shoulder [employer] [id number] 05/18/2027 [id number] / / [id number] Baseplt Brian Rev Rsp Ti 75p66ij - [id number] Implanted: Qty: 1 on 01/23/2022 by Benjamin Leija Jr., MD at [facility] Implant Right: Shoulder [employer] [id number] 12/05/2027 [id number] / / [id number] Hd Brian Shldr Rev Ntrl 36mm - [id number] Implanted: Qty: 1 on 01/23/2022 by Benjamin Leija Jr., MD at [facility] Implant Right: Shoulder [employer] [id number] 11/24/2027 [id number] / / [id number] Scrw Bone Rsp Lk 5x34mm - [id number] Implanted: Qty: 1 on 01/23/2022 by Benjamin Leija Jr., MD at [facility] Implant Right: Shoulder [employer] 06/14/2027 [id number] / / [id number] Insrt Hum Rsp Sockt Shldr Hxe/Pls 36mm - [id number] Implanted: Qty: 1 on 01/23/2022 by Benjamin Leija Jr., MD at [facility] Implant Right: Shoulder [employer] [id number] 11/23/2026 [id number] / / [id number] Sut Bone Dynacord W/Os/6 Ndl 2pk Strip/Sky - [id number] Implanted: Qty: 2 on 01/23/2022 by Benjamin Leija Jr., MD at [facility] Implant Right: Shoulder DE[employer]Y [employer] [id number] 09/04/2024 [id number] / / [id number] Stent Implanted: Qty: 7 Stent Procedures Procedure Name Priority Date/Time Associated Diagnosis Comments HEMOGLOBIN A1C Routine 11/28/2021 10:49 AM EDT LIPID PANEL Routine 07/24/2017 9:05 AM EST Dyspepsia Fatigue, unspecified type Dyspnea, unspecified type Diabetes mellitus type 2 in obese from Last 3 Months or Most Recently Relevant to Health Maintenance Results * (ABNORMAL) Hemoglobin A1c (11/28/2021 10:49 AM EDT) Hemoglobin A1C 5.70(H) 4.80 - 5.60 % 11/28/2021 11:38 AM EDT [facility] Blood Venipuncture / Unknown 11/28/2021 10:49 AM EDT 11/28/2021 11:15 AM EDT Narrative [facility] - 11/28/2021 11:38 AM EDT Hemoglobin A1C Ranges: Increased Risk for Diabetes 5.7% to 6.4% Diabetes >= 6.5% Diabetic Goal < 7.0% Benjamin Leija Jr., MD LAB BLOOD ORDERABLES Fi nal Result Performing Organization Address City/[facility] Co de Phone Number [facility]
[address] [place], [place] [id number], * (ABNORMAL) Lipid Panel (07/24/2017 9:05 AM EST) Pathologist [facility] Total Cholesterol 126 0 - 200 mg/dL [facility] Comment: Cholesterol Reference Ranges: Desirable < 200 mg/dL Borderline 200-239 mg/dL High Risk > 239 mg/dL Triglyceride Reference Ranges: Normal < 150 mg/dL Borderline 150-199 mg/dL High 200-499 mg/dL Very High > 499 mg/dL HDL Reference Ranges: Low < 40 mg/dL High > 59 mg/dL LDL Reference Ranges: Optimal < 100 mg/dL Near Optimal 100-129 mg/dL Borderline 130-159 mg/dL High 160-189 mg/dL Very High > 189 mg/dL Triglycerides 178(H) 0 - 150 mg/dL [facility] HDL Cholesterol 35(L) 40 - 60 mg/dL [facility] VLDL Cholesterol 35.6 mg/dL [facility] LDL Cholesterol 55 0 - 100 mg/dL [facility] Blood 07/24/2017 9:05 AM EST 07/24/2017 Narrative [facility] ([facility]) - 07/25/2017 8:10 PM EST Performed at: 01 - [facility] [address] [place] [address] [id number] Supply Chain Consultant: Pola Bennett MD, Phone: [phone] Patient Fasting: Y Coretta Goldman PA-C LAB BLOOD ORDERABLES Final Result [facility]) [address] [place] [address], [place] [phone] [facility] [address] [place] [address], from Last 3 Months or Most Recently Relevant to Health Maintenance Additional Health Concerns Active Problems Noted Date Diagnosed Date Autogenerated Problem 03/11/2025 Insurance MEDICARE A & B Advance Directives * CPR (Attempt to Resuscitate) (Latest Code Status on File) Date Activated Date Inactivated Comments 06/03/2018 11:37 AM 06/05/2018 5:27 PM Question Answer Comments Code Status (Patient has no pulse and is not breathing): CPR (Attempt to Resuscitate) Medical Interventions (Patie nt has pulse or is breathing): Full Level Of Support Discussed With: Patient Care Teams Blocker And Polisher Relationship Specialty Start Date End Date Aleksandr Dailey MD [address] [facility] [address] [place] [address] PCP - General Family Medicine 06/02/18
--- NOTE | 2025-04-02 10:15 | CA_ITS ---
APPROVED REPORT EXAM: Comprehensive 2D, Doppler, and color-flow Echocardiogram [id number] Programmer Analyst: Denise Gray, RT(R) Ht: 5 ft 11 in Wt: 233lbs BSA: 2.25 BP: 165/72 mmHg Indications: pre op assessment, abn EKG 2D Dimensions Left Atrium 3.96 cm M: 3.0 - 4.0 LA Volume 46.30 mL LVOT 2.15 cm (M/F) 1.5-2.5 LA Volume Index 20.58 mL/m2 (M/F) 16-34 EF AP4 29.60 % GL Strain -15.9 % M-Mode Dimensions RVDd 3.14 cm (0.9-2.6) LVDd 5.17 cm (3.5-5.7) Ao Diam 2.81 cm (2.0-3.7) LVDs 4.07 cm (3.5-5.7) IVSd 1.02 cm (0.6-1.1) PWd 1.02 cm (0.6-1.1) EF (Teich) 43.00% FS 21.30% EDV (Teich) 127.80 mL ESV (Teich) 72.90 mL LV Diastology E Decel Time 150 (160-240 msec) E/A Ratio 1.3 MED E' 7.3 (>= 7 cm/sec) E'/MED E' Ratio 11.70 (<= 14) LAT E' 11.8 (>= 10 cm/sec) E/LAT E' Ratio 7.24 (<= 14) Aortic Valve LVOT Max 85.0 (70-110 cm/s) NEHA Index 1.00 cm2/m2 LVOT VTI 18.38 cm AoV Peak Alberto. 134.0 (50-130 cm/s) AO Mean GR. 3.50 (<5 mmHg) AO VTI 29.8 (18-25 cm) NEHA (VTI) 2.24 (2.5-4.5 cm2) Mitral Valve MV E Max Alberto. 85.0 (40-130 cm/s) MV A Velocity 65.0 (40-130 cm/s) E/A Ratio 1.32 MV Decel. Time 150 (160-240 ms) Tricuspid Valve TR P. Velocity 267.00 cm/s Left Ventricle The left ventricle is normal size. Left ventricular systolic function is mildly reduced. There is normal left ventricular wall thickness. There is mild global hypokinesis present. The septum is asynchronous. The left ventricular diastolic function is normal. LVEF is 40-45% Right Ventricle The right ventricle is moderately dilated. The right ventricular systolic function is mildly reduced. Atria The left atrium is mildly dilated. The right atrium is mildly dilated. There is no color Doppler evidence of interatrial shunt. Aortic Valve The aortic valve is mildly thickened. There is no hemodynamically significant aortic valvular stenosis. Trace aortic regurgitation is present. Mitral Valve The mitral valve is normal in structure. No evidence of mitral valve stenosis. Mild mitral regurgitation is present. Tricuspid Valve The tricuspid valve leaflets are thin and pliable. Mild tricuspid regurgitation. RVSP is 25-30 mmHg. Pulmonic Valve The pulmonary valve is grossly normal in structure. Trace pulmonic valve regurgitation is present. Great Vessels The aortic root is normal in size. IVC is normal in size and collapses >50% with inspiration. Pericardium There is no pericardial effusion. Other Information Study Quality: Technically Difficult Conclusion Technically dififcult study. Mildly reduced LV systolic function (LVEF 40-45%). Asynchronous septum. Moderate RV dilation with mild reduction in RV function. Mild biatrial dilation. Mild MR, mild TR. In the setting of technically difficult study, future TTE evaluations are suggested with administration of ultrasound enhancing agent for better delineation of the LV endocardial borders. Electronically signed by : Meghna John MD 04/03/2025 21:50:41
== END 2025-04-02 23:59 | disposition home or self-care (01) ==
LOC: RT 09:54
PROVIDERS: PCP Family Medicine; Visit Provider Internal Medicine
DX: Z01.810 Encounter for preprocedural cardiovascular examination (principal); I08.1 Rheumatic disorders of both mitral and tricuspid valves; I11.9 Hypertensive heart disease without heart failure; I25.10 Atherosclerotic heart disease of native coronary artery without angina pectoris; R94.31 Abnormal electrocardiogram [ECG] [EKG]; R93.1 Abnormal findings on diagnostic imaging of heart and coronary circulation
CPT/HCPCS: 93306

== ENCOUNTER 2025-05-18 08:31 | Day surgery (SDC) | payer MEDICARE, SELFPAY ==
[2025-05-18] VITALS (10 sets, daily range): BP systolic 140–190; BP diastolic 71–110; PULSE 68–89; RESP 16–20; TEMP 36.6; O2SAT 90–99; BMI 33.1
--- NOTE | 2025-05-18 07:09 | IR_ITS ---
APPROVED REPORT Patient Location: Outpatient Electronic Integrated Systems Mechanic: JOSE ARMANDO Mcarthur RT (R) PROCEDURES Left heart catheterization Left ventriculogram Selective coronary angiogram INDICATION Coronary artery disease, Abnormal Myoview, New onset cardiomyopathy Informed consent was obtained prior to the procedure. COMPLICATIONS NONE Estimated Blood Loss: LESS THAN 10 ML TECHNIQUE One percent lidocaine used to anesthetize the right anterior aspect of the wrist. The right radial artery was accessed via the Seldinger technique. A 6 Lithuanian sheath was placed in the right radial artery. 2.5 mg of Verapamil, 800 mcg of nitroglycerin, 1mg Lidocaine and 5000 U Heparin were given through the arterial sheath. The JL3 catheter was also used to perform left heart catheterization, left ventriculogram and selective coronary angiogram. At the end of the procedure the sheath was removed good hemostasis was achieved using Traclet band, patient was transferred to the postop holding area in stable condition. ANGIOGRAPHIC RESULTS The left main artery Normal The left anterior descending artery Has an ostial proximal calcified 90% stenosis followed by proximal to mid vessel stents which are widely patent The circumflex artery Is dominant and has an ostial 30% stenosis with mild diffuse 20% luminal regularities The right coronary artery Nondominant yet still large with proximal 30% stenosis mid vessel 60% stenosis representing in-stent restenosis The CHAVEZ ventriculogram reveals Ejection fraction 35 to 40% The left ventricular end-diastolic pressure 15 mmHg IMPRESSION Coronary artery disease as described above Reduced ejection fraction Normal LVEDP PLAN 1. Patient will be referred to [facility] for surgical revascularization 2. Start high intensity statin along with aspirin 81 mg daily 3. GDMT for systolic heart failure Electronically signed by : Robinson Wyman MD 05/20/2025 15:07:59
[2025-05-18 09:05] LABS: Hematocrit 45.4 % (42.0-52.0); Hemoglobin 14.7 g/dL (14.1-18.0); Immature Granulocytes % 0.3 %; Mean Corpuscular HGB Conc 32.4 g/dL (31.8-35.4); Mean Corpuscular Hemoglobin 31.0 pg (27.0-31.2); Mean Corpuscular Volume 95.8 fl (80-94); Nucleated Red Blood Cells % 0 %; Platelet Count 302 K/mm3 (142-424); Red Blood Count 4.74 M/mm3 (4.60-6.20); Red Cell Distribution Width-SD 46.3 fL; White Blood Count 6.7 K/mm3 (4.8-10.8)
[2025-05-18 09:20] LABS: Anion Gap 13.6 mEq/L (5-15); Blood Urea Nitrogen 16 mg/dl (9-20); Calcium 9.1 mg/dl (8.4-10.2); Carbon Dioxide 29 mmol/L (22.0-30.0); Chloride 99 mmol/L (98-107); Creatinine Clearance Estimated 109 mL/min (50-200); Creatinine,Serum 0.70 mg/dl (0.66-1.25); Estimated Glomerular Filt Rate 112 ml/min (>60); GFR (African American) 136 ML/MIN (>60); Glucose 101 mg/dl (74-100); Potassium 4.6 mmoL/L (3.5-5.1); Sodium 137 mmol/L (136-145)
[2025-05-18] MEDS: NITROGLYCERIN 800MCG/8ML SYR (CATH LAB) 800 MCG IA (10:34)
[2025-05-18] MEDS: LIDOCAINE 1% 10ML MDV 10 ML IJ (10:34)
[2025-05-18] MEDS: 0.9 % SODIUM CHLORIDE 500 ML 25 ML IV (10:34)
[2025-05-18] MEDS: HEPARIN 1,000 UNITS/ML 10ML VIAL (CATH LAB) 5000 UNIT IV (10:34)
[2025-05-18] MEDS: VERAPAMIL 2.5MG/ML 2ML VIAL 2.5 MG IV (10:34)
[2025-05-18] MEDS: HEPARIN 1,000 UNITS/500ML NS (CATH LAB) 3000 UNIT IV (10:35)
[2025-05-18] MEDS: MIDAZOLAM HCL 1MG/ML 5ML VIAL 1 MG IV (11:00)
[2025-05-18] MEDS: FENTANYL 100MCG/2ML VIAL 50 MCG IV (11:00)
[2025-05-18] MEDS: IOPAMIDOL-370 (76%);100ML BOTTLE 50 ML IV (12:09)
--- NOTE | 2025-05-18 13:29 | SUR.PHASEII ---
Pt and given information of cardiothoracic surgery referral and that will call them with appointment
== END 2025-05-18 13:27 | disposition home or self-care (01) ==
PROVIDERS: PCP Family Medicine; Visit Provider Internal Medicine
PROC: 4A023N7 Measurement of Cardiac Sampling and Pressure, Left Heart, Percutaneous Approach (ICD-10-PCS; CPT 93452; principal; 2025-05-18 09:30)
DX: I25.10 Atherosclerotic heart disease of native coronary artery without angina pectoris (principal); T82.855A Stenosis of coronary artery stent, initial encounter; R93.1 Abnormal findings on diagnostic imaging of heart and coronary circulation; I42.9 Cardiomyopathy, unspecified; I45.2 Bifascicular block; I11.0 Hypertensive heart disease with heart failure; I50.20 Unspecified systolic (congestive) heart failure; I50.811 Acute right heart failure; R94.39 Abnormal result of other cardiovascular function study; R94.31 Abnormal electrocardiogram [ECG] [EKG]; E78.2 Mixed hyperlipidemia; G47.33 Obstructive sleep apnea (adult) (pediatric); Z95.5 Presence of coronary angioplasty implant and graft; Z79.82 Long term (current) use of aspirin; Z79.899 Other long term (current) drug therapy; Z88.5 Allergy status to narcotic agent; Y84.8 Other medical procedures as the cause of abnormal reaction of the patient, or of later complication, without mention of misadventure at the time of the procedure
CPT/HCPCS: 80048; 85025; 93458; 99152; C1725; C1760; C1769; J1200; J1644; J3010; J7040; Q9967